=== PATIENT | female | born 1980 | race Caucasian/White ===

== ENCOUNTER 2019-03-10 09:45 | Emergency (ER) | payer OTHER ==
[~2019-03-10] VITALS: Ht 154.9 cm; Wt 60.8 kg
[2019-03-10 09:51] VITALS: Ht 154.9 cm; Wt 60.8 kg
[2019-03-10 10:53] LABS: BASOPHIL % 0.3 % (0-2); PLATELET COUNT 239 x10^3mcL (130-400); RED CELL DISTRIBUTION WIDTH 12.8 % (11.5-14.5)
[2019-03-10 10:56] LABS: ALBUMIN 3.7 g/dL (3.4-5.0); ALKALINE PHOSPHATASE 55 U/L (46-116); ALT/SGPT 36 U/L (14-59); AST/SGOT 16 U/L (15-37); BILIRUBIN TOTAL 0.7 mg/dL (0.20-1.00); CALCIUM 9.3 mg/dL (8.5-10.1); CHLORIDE SERUM 104 mmol/L (98-107); CREATININE SERUM 0.7 mg/dL (0.6-1.0); GFR1 > 60 mL/min; GLUCOSE SERUM 81 mg/dL (74-106); LIPASE 237 IU/L (73-393); POTASSIUM SERUM 4.2 mmol/L (3.5-5.1); SODIUM SERUM 140 mmol/L (136-145); TOTAL PROTEIN, SERUM 7.6 g/dL (6.4-8.2)
[2019-03-10 14:11] VITALS: BP 101/65
== END 2019-03-10 14:11 | disposition home or self-care (01) ==
LOC: ED 09:45
PROVIDERS: Emergency Medicine
DX: N83.201 Unspecified ovarian cyst, right side (principal)
CPT/HCPCS: J1885; Q9967

== ENCOUNTER 2019-04-24 07:00 | Day surgery (SDC) | payer OTHER ==
[~2019-04-24] VITALS: Ht 157.5 cm; Wt 61.2 kg
[2019-04-24 07:53] VITALS: BP 106/58
[2019-04-24 10:19] VITALS: BP 98/45
== END 2019-04-24 11:15 | disposition home or self-care (01) ==
LOC: DS 07:00 → GI 11:00 → OR 11:00 → DS 11:15
DX: R10.13 Epigastric pain (principal); B96.81 Helicobacter pylori [H. pylori] as the cause of diseases classified elsewhere; Z79.899 Other long term (current) drug therapy; Z87.59 Personal history of other complications of pregnancy, childbirth and the puerperium; Z98.890 Other specified postprocedural states
CPT/HCPCS: 43235; J1200; J1610; J2250; J2310; J3010; J3490

== ENCOUNTER 2019-05-20 10:57 | Emergency (ER) | payer OTHER ==
[~2019-05-20] VITALS: Ht 157.5 cm; Wt 74.8 kg
[2019-05-20 10:59] VITALS: Ht 157.5 cm; Wt 74.8 kg
[2019-05-20 11:25] LABS: microscopic required? NO
[2019-05-20 11:34] LABS: UA SPECIFIC GRAVITY 1.015 (1.005-1.035); urine erythrocyte NEGATIVE (NEGATIVE)
[2019-05-20 11:45] LABS: BASOPHIL % 0.2 % (0-2); PLATELET COUNT 303 x10^3mcL (130-400); RED CELL DISTRIBUTION WIDTH 12.2 % (11.5-14.5)
[2019-05-20 11:53] LABS: CALCIUM 8.6 mg/dL (8.5-10.1); CARBON DIOXIDE 28.2 mmol/L (21-32); CHLORIDE SERUM 98 mmol/L (98-107); CREATININE SERUM 0.7 mg/dL (0.6-1.0); GFR1 > 60 mL/min; GLUCOSE SERUM 69 mg/dL (74-106); POTASSIUM SERUM 4.1 mmol/L (3.5-5.1); SODIUM SERUM 134 mmol/L (136-145)
[2019-05-20 11:58] LABS: ALBUMIN 3.6 g/dL (3.4-5.0); ALKALINE PHOSPHATASE 63 U/L (46-116); ALT/SGPT 22 U/L (14-59); AST/SGOT 17 U/L (15-37); BILIRUBIN TOTAL 0.6 mg/dL (0.20-1.00); LIPASE 203 IU/L (73-393); TOTAL PROTEIN, SERUM 8.1 g/dL (6.4-8.2)
[2019-05-20 13:24] VITALS: BP 95/55
== END 2019-05-20 13:24 | disposition home or self-care (01) ==
LOC: ED 10:57
PROVIDERS: Emergency Medicine
DX: R19.7 Diarrhea, unspecified (principal); R10.13 Epigastric pain; R11.2 Nausea with vomiting, unspecified; R53.1 Weakness; R42 Dizziness and giddiness; R39.198 Other difficulties with micturition; Z98.890 Other specified postprocedural states
CPT/HCPCS: J1885; J2405; J7030; Q0092